=== PATIENT | female | born 1985 | race Caucasian/White ===

== ENCOUNTER 2020-12-08 12:17 | Emergency (ER) | payer SELFPAY ==
[~2020-12-08] VITALS: Ht 167.6 cm; Wt 84.0 kg
[2020-12-08] MEDS ORDERED: CYCLOBENZAPRINE 10 MG TABLET. PO ONE (13:00)
[2020-12-08] MEDS ORDERED: HYDROcodone/APAP 5/325MG 1 TAB TABLET PO ONE (13:00)
--- NOTE | 2020-12-08 13:34 | RAD ---
XR RIBS MIN 3 VIEWS RT W/PA CHEST History: Reason: fall pain,pt states fell and hit ribs on bathtub,pain lower ribs. / Spl. Instruction s: / History: Technique: PA view the chest and additional views of the right ribs. Comparison: None. Findings: No dislocation or pleural effusion. No pneumothorax. Normal heart size. Surgical clips right upper qu adrant. No displaced rib fracture. Impression: 1. No acute cardiopulmonary process. No displaced rib fracture. Electronically signed by: Ashkan Dukes DO (12/08/2020 1:32 PM) [id number]
--- NOTE | 2020-12-08 13:56 | PHYS DOC ---
Past Medical History Past Surgical History: Appendectomy, Cholecystectomy, Hysterectomy General Adult EDM: Chief Complaint: RIB PAIN HPI: HPI: Patient is a 35 year old female who presents the ED today complaining of 5 out of 10 right lateral leg pain, symptoms began yesterday after she fell getting out of the shower. She states she hit her ribs on the side of the bathtub. Patient describes the pain as sharp and intermittent worse on touching her ribs. Review of Systems: Review of Systems: Constitutional: Denies fever or chills. [] Respiratory: Reports right rib pain. Denies cough or shortness of breath. [] Cardiovascular: Denies chest pain or edema. [] GI: Denies abdominal pain, nausea, vomiting, bloody stools or diarrhea. [] : Denies dysuria. [] Musculoskeletal: Denies back pain or joint pain. [] Integument: Denies rash. [] Neurologic: Denies headache, focal weakness or sensory changes. [] Psychiatric: Denies depression or anxiety. [] Heart Score: C/O Chest Pain: N/A Risk Factors: Risk Factors: DM, Current or recent (<one month) smoker, HTN, HLP, family history of CAD, obesity. Risk Scores: Score 0 - 3: 2.5% MACE over next 6 weeks - Discharge Home Score 4 - 6: 20.3% MACE over next 6 weeks - Admit for Clinical Observation Score 7 - 10: 72.7% MACE over next 6 weeks - Early Invasive Strategies Current Medications: Current Medications Medications (Trade) Dose Ordered Sig/Lindsay Start Time Stop Time Status Last Admin Dose Admin Acetaminophen/ Hydrocodone Bitart (Lortab 5/325) 1 tab 1X ONCE 12/08/20 13:00 12/08/20 13:01 DC 12/08/20 12:56 1 TAB Cyclobenzaprine HCl (Flexeril) 10 mg 1X ONCE 12/08/20 13:00 12/08/20 13:01 DC 12/08/20 12:56 10 MG Allergies: Allergies: Allergies Coded Allergies Type Severity Reaction Last Updated Verified cephalexin Allergy Unknown 12/08/20 Yes ketorolac Allergy Unknown 12/08/20 Yes tramadol Allergy Unknown 12/08/20 Yes Physical Exam: PE: Constitutional: Well developed, well nourished, no acute distress, non-toxic appearance. [] Lungs & Thorax right ribs with no obvious deformity, no bruising,: Slight tenderness on palpation of the right posterior ribs. Bilateral breath sounds clear to auscultation [] Abdomen: Bowel sounds normal, soft, no tenderness, no masses, no pulsatile masses. [] Skin: Warm, dry, no erythema, no rash. [] Back: No tenderness, no CVA tenderness. [] Extremities: No tenderness, no cyanosis, no clubbing, ROM intact, no edema. [] Neurologic: Alert and oriented X 3, normal motor function, normal sensory function, no focal deficits noted. [] Psychologic: Affect normal, judgement normal, mood normal. [] Current Patient Data: Vital Signs: Vital Signs Date Time Temp Pulse Resp B/P (MAP) Pulse Ox O2 Delivery O2 Flow Rate FiO2 12/08/20 12:56 Room Air 12/08/20 12:29 98.5 72 17 125/85 (98) 98 98.5 EKG: EKG: [] Radiology/Procedures: Radiology/Procedures: []PROCEDURE: RIBS RIGHT AND PA CHEST XR RIBS MIN 3 VIEWS RT W/PA CHEST History: Reason: fall pain,pt states fell and hit ribs on bathtub,pain lower ribs. / Spl. Instructions: / History: Technique: PA view the chest and additional views of the right ribs. Comparison: None. Findings: No dislocation or pleural effusion. No pneumothorax. Normal heart size. Surgical clips right upper quadrant. No displaced rib fracture. Impression: 1. No acute cardiopulmonary process. No displaced rib fracture. Electronically signed by: Farhan Ramirez DO (12/08/2020 1:32 PM) [id number] DICTATED and SIGNED BY: FARHAN RAMIREZ DO DATE: 12/08/20 [id number] Course & Med Decision Making: Course & Med Decision Making Pertinent Labs and Imaging studies reviewed. (See chart for details) This a 35-year-old female patient with right rib pain after falling yesterday. Right rib x-rays including PA chest are negative. Discharge to home. Follow-up with PCP. Encouraged to take deep breaths 10 times every hour. Provided return precautions. Dragon Disclaimer: Dragon Disclaimer: This electronic medical record was generated, in whole or in part, using a voice recognition dictation system. Departure Departure Impression: Primary Impression: Fall Qualified Codes: W19.XXXA - Unspecified fall, initial encounter Additional Impression: Contusion of rib on right side Qualified Codes: S20.211A - Contusion of right front wall of thorax, initial encounter Disposition: HOME / SELF CARE / HOMELESS Condition: STABLE Referrals: NO PCP (PCP) follow up with your doctor in one week Patient Instructions: Rib Contusion Additional Instructions: You were seen for right rib pain, your right rib x-rays are negative for any acute findings. Take deep breaths 10 times every hour when awake. Follow-up with your doctor in 1 to 2 weeks Scripts Cyclobenzaprine Hcl (CYCLOBENZAPRINE HCL) 10 Mg Tablet 1 TAB PO TID, #30 TAB Prov: CURTIS TAMAYO APRN 12/08/20 CURTIS TAMAYO APRN Dec 08, 2020 13:56
[2020-12-08] MEDS ORDERED: CYCL10TA2 PO (14:03)
[2020-12-08 14:28] VITALS: BP 118/82
== END 2020-12-08 14:28 | disposition home or self-care (01) ==
LOC: ER 12:17
DX: S20.211A Contusion of right front wall of thorax, initial encounter (principal); M79.604 Pain in right leg; Z88.1 Allergy status to other antibiotic agents; Z88.8 Allergy status to other drugs, medicaments and biological substances; W18.2XXA Fall in (into) shower or empty bathtub, initial encounter; Y93.89 Activity, other specified; Y92.89 Other specified places as the place of occurrence of the external cause; Y99.8 Other external cause status
CPT/HCPCS: 71101; 99283